=== PATIENT | female | born 1985 | race Caucasian/White ===

== ENCOUNTER → 2018-03-11 11:25 | Outpatient (CLI) | payer MEDICAID, SELFPAY | PROVIDERS: PCP Family Medicine; Visit Provider Internal Medicine | DX: Z39.1 Encounter for care and examination of lactating mother (principal) ==

== ENCOUNTER 2018-06-23 15:35 | Outpatient (REF) | payer MEDICAID, SELFPAY ==
[2018-06-25 13:20] LABS: Chlamydia Result Negative; GC Result Negative; Specimen Description CERVIX
== END 2018-06-23 15:55 ==
LOC: LBN 15:35
PROVIDERS: PCP Family Medicine; Visit Provider Nurse Practitioner Family
DX: R30.0 Dysuria (principal); Z11.3 Encounter for screening for infections with a predominantly sexual mode of transmission
CPT/HCPCS: 87077; 87491; 87591; 87086; 87186

== ENCOUNTER 2018-08-14 15:23 | Outpatient (REF) | payer MEDICAID, SELFPAY | END 2018-08-14 15:43 | LOC: LBN 15:23 | PROVIDERS: PCP Family Medicine; Visit Provider Advanced Practice Midwife | DX: N76.0 Acute vaginitis (principal) | CPT/HCPCS: 87480; 87510; 87660 ==

== ENCOUNTER 2019-07-29 13:48 | Outpatient (REF) | payer OTHER, SELFPAY ==
[2019-07-30 12:29] LABS: Chlamydia Result Negative (Negative); GC Result Negative (Negative)
== END 2019-07-29 14:08 ==
LOC: LBN 13:48
PROVIDERS: PCP Family Medicine; Visit Provider Obstetrics & Gynecology Gynecology
DX: Z11.3 Encounter for screening for infections with a predominantly sexual mode of transmission (principal)
CPT/HCPCS: 87491; 87591

== ENCOUNTER 2020-09-22 21:30 | Outpatient (REF) | payer BC, SELFPAY | END 2020-09-22 21:31 | disposition home or self-care (01) | LOC: LBN 21:30 | PROVIDERS: PCP Family Medicine; Visit Provider Obstetrics & Gynecology Gynecology | DX: R30.0 Dysuria (principal) | CPT/HCPCS: 87077; 87086; 87186 ==

== ENCOUNTER 2020-10-13 11:12 | Outpatient (REF) | payer BC, SELFPAY ==
--- NOTE | 2020-10-13 10:30 | PAPFT_PTH ---
PATIENT: Jony Lopez LOC: [facility] U#:[id number] AGE/SX: 35/F ROOM: RE10/13/[address]: Swati Montoya : 1985 BED: DIS: 10/13/2020 SPEC #: [id number] RECD: 10/13/20 12:57 STATUS: ALEJANDRACorine REQ #: [id number] KIMMIE: 10/13/20 10:[address]: Swati Montoya DEPT: [facility] Cytology RECD BY: Meghan Moe ENTERED: 10/13/20 12:58 SP TYPE: PAPFT LETICAI DR: Maxim Urbina MD Tissues: 1 - CX/ENDOCX FOR PAP SMEARS Procedures: PAP THIN PREP/[facility] Screening HPV DNA PROBE Comments: [id number]
[2020-10-16 13:54] LABS: Chlamydia Result Negative (Negative); GC Result Negative (Negative)
== END 2020-10-13 11:13 | disposition home or self-care (01) ==
LOC: LBN 11:12
PROVIDERS: PCP Family Medicine; Visit Provider Obstetrics & Gynecology Gynecology
DX: N76.0 Acute vaginitis (principal); Z11.3 Encounter for screening for infections with a predominantly sexual mode of transmission; Z12.4 Encounter for screening for malignant neoplasm of cervix; Z97.5 Presence of (intrauterine) contraceptive device; Z11.51 Encounter for screening for human papillomavirus (HPV)
CPT/HCPCS: 87491; 87591; 88142; 87624

== ENCOUNTER 2024-05-06 14:30 | Outpatient (REF) | payer BC, SELFPAY ==
--- NOTE | 2024-05-06 14:20 | PAPFT_PTH ---
PATIENT: Jony Lopez LOC: [facility] U#:[id number] AGE/SX: 38/F ROOM: RE05/06/[address]: Swati Montoya : 1985 BED: DIS: 05/06/2024 SPEC #: [id number] RECD: 05/06/24 17:56 STATUS: ALEJANDRACorine REQ #: [id number] KIMMIE: 05/06/24 14:[address]: Swati Montoya DEPT: [facility] Cytology RECD BY: Meghan Moe ENTERED: 05/06/24 17:56 SP TYPE: PAPFT LETICIA DR: Maxim Urbina MD Tissues: 1 - CX/ENDOCX FOR PAP SMEARS Procedures: PAP THIN PREP/[facility] Screening HPV DNA PROBE Comments: [id number] (HPV 16 & 18/45)
== END 2024-05-06 14:31 | disposition home or self-care (01) ==
LOC: LBN 14:30
PROVIDERS: PCP Family Medicine; Visit Provider Obstetrics & Gynecology Gynecology
DX: Z01.419 Encounter for gynecological examination (general) (routine) without abnormal findings (principal)
CPT/HCPCS: 88142; 87624